=== PATIENT | male | born 1955 | race Caucasian/White ===

== ENCOUNTER 2020-12-15 10:52 | Outpatient (CLI) | payer MEDICARE, MEDICAID ==
[2020-12-15 17:59] LABS: SARS-CoV-2 PCR by NAA Not Detected (NotDetected)
== END 2020-12-15 10:53 | disposition home or self-care (01) ==
LOC: LABBT 10:52
PROVIDERS: ATTEND Internal Medicine Gastroenterology
DX: Z01.812 Encounter for preprocedural laboratory examination (principal); N18.9 Chronic kidney disease, unspecified; D63.1 Anemia in chronic kidney disease; D63.8 Anemia in other chronic diseases classified elsewhere; Z20.822 Contact with and (suspected) exposure to COVID-19; Z86.010 Personal history of colon polyps
CPT/HCPCS: U0003; U0005; 87635

== ENCOUNTER 2020-12-20 07:03 | Day surgery (SDC) | payer MEDICARE, MEDICAID ==
[2020-12-19 08:58] VITALS: BMI 23.8
[2020-12-20] MEDS ORDERED: PROPOFOL 200 MG/20 ML VIAL ONE (08:43)
== END 2020-12-20 09:50 | disposition home or self-care (01) ==
LOC: SDC 07:03
PROVIDERS: ATTEND Internal Medicine Gastroenterology
PROC: 0DJD8ZZ Inspection of Lower Intestinal Tract, Via Natural or Artificial Opening Endoscopic (ICD-10-PCS; principal; 2020-12-20)
DX: Z12.11 Encounter for screening for malignant neoplasm of colon (principal); I12.9 Hypertensive chronic kidney disease with stage 1 through stage 4 chronic kidney disease, or unspecified chronic kidney disease; N18.9 Chronic kidney disease, unspecified; E78.5 Hyperlipidemia, unspecified; M85.80 Other specified disorders of bone density and structure, unspecified site; F72 Severe intellectual disabilities; K21.9 Gastro-esophageal reflux disease without esophagitis; Z86.010 Personal history of colon polyps; Z79.899 Other long term (current) drug therapy; Z53.8 Procedure and treatment not carried out for other reasons; Z88.6 Allergy status to analgesic agent; Z88.8 Allergy status to other drugs, medicaments and biological substances
CPT/HCPCS: J2704

== ENCOUNTER 2021-01-12 10:19 | Outpatient (CLI) | payer MEDICARE, MEDICAID ==
[2021-01-12 20:43] LABS: SARS-CoV-2 PCR by NAA Not Detected (NotDetected)
== END 2021-01-12 10:20 | disposition home or self-care (01) ==
LOC: LABBT 10:19
PROVIDERS: ATTEND Internal Medicine Gastroenterology
DX: Z01.812 Encounter for preprocedural laboratory examination (principal); Z86.010 Personal history of colon polyps; Z53.9 Procedure and treatment not carried out, unspecified reason; Z20.822 Contact with and (suspected) exposure to COVID-19
CPT/HCPCS: U0003; U0005; 87635

== ENCOUNTER 2021-01-17 06:54 | Day surgery (SDC) | payer MEDICARE, MEDICAID ==
[2021-01-17] MEDS ORDERED: Lidocaine 1% PF 5 ML VIAL ONE (07:37)
[2021-01-17] MEDS ORDERED: PROPOFOL 200 MG/20 ML VIAL ONE (07:37)
== END 2021-01-17 10:30 | disposition home or self-care (01) ==
LOC: SDC 06:54
PROVIDERS: ATTEND Internal Medicine Gastroenterology
PROC: 0DBL8ZX Excision of Transverse Colon, Via Natural or Artificial Opening Endoscopic, Diagnostic (ICD-10-PCS; principal; 2021-01-17)
DX: Z12.11 Encounter for screening for malignant neoplasm of colon (principal); D12.3 Benign neoplasm of transverse colon; Q43.8 Other specified congenital malformations of intestine; I12.9 Hypertensive chronic kidney disease with stage 1 through stage 4 chronic kidney disease, or unspecified chronic kidney disease; N18.9 Chronic kidney disease, unspecified; K21.9 Gastro-esophageal reflux disease without esophagitis; Z86.010 Personal history of colon polyps; Z88.6 Allergy status to analgesic agent; Z88.8 Allergy status to other drugs, medicaments and biological substances
CPT/HCPCS: 88305; J2704

== ENCOUNTER 2021-02-08 09:59 | Outpatient (CLI) | payer MEDICARE, MEDICAID ==
[2021-02-08 11:20] LABS: #Eosinphils 0.1 10x3/uL (0.0-0.5); #Monocytes 0.6 10x3/uL (0.0-1.1); #Neutrophils 3.7 10x3/uL (1.5-8.4); %Basophils 0.4 % (0.0-2.0); %Eosinophils 1.1 % (0.0-6.0); %Lymphocytes 18.8 % (18.0-47.0); %Monocytes 11.5 % (0.0-10.0); Hemoglobin 12.5 g/dL (13.5-17.5); Mean Corpuscular HGB CONC 32.4 g/dL (32.0-36.0); Mean Corpuscular Hemoglobin 28.9 pg (27.0-33.0); Mean Corpuscular Volume 89.1 fl (81.2-95.1); Mean Platelet Volume 10.3 fl (7.4-10.4); Platelet Count 251 10x3/uL (150-450); RBC Distribution Width 12.5 % (11.5-14.5); Red Blood Cell (RBC) Count 4.33 10x6/uL (4.32-5.72); White Blood Cell (WBC) Count 5.5 10x3/uL (3.5-10.5)
[2021-02-08 11:24] LABS: ALT (SGPT) 13 U/L (8-55); AST (SGOT) 20 U/L (5-34); Albumin 3.9 g/dL (3.4-4.8); Alkaline Phosphatase 89 U/L (40-110); Anion Gap 11 mmol/L (10-20); BUN (Urea Nitrogen) 20 mg/dL (8.4-25.7); Bilirubin, Total 0.3 mg/dL (0.2-1.2); Calc. Creatinine Clearance 0 mL/min (70-130); Calcium 9.3 mg/dL (7.8-10.44); Carbon Dioxide 31 mmol/L (23-31); Chloride 104 mmol/L (98-107); Globulin 3.1 g/dL (2.4-3.5); Glucose 79 mg/dL (80-115); Potassium 4.1 mmol/L (3.5-5.1); Sodium 142 mmol/L (136-145)
[2021-02-08 14:24] LABS: Hemoglobin A1c 5.1 % (4.0-6.0)
[2021-02-08 20:45] LABS: SARS-CoV-2 NAA Rapid Test Not Detected (NotDetected)
== END 2021-02-08 10:00 | disposition home or self-care (01) ==
LOC: LABBT 09:59
PROVIDERS: ATTEND Surgery
DX: Z01.818 Encounter for other preprocedural examination (principal); K63.5 Polyp of colon; Z20.822 Contact with and (suspected) exposure to COVID-19
CPT/HCPCS: 80053; 83036; 85025; 93005; U0002; U0005; 93010

== ENCOUNTER 2021-02-12 06:12 | Inpatient (IN) | payer MEDICARE, MEDICAID ==
[2021-02-12] MEDS ORDERED: Fentanyl 100 MCG/2 ML VIAL ONE (08:30)
[2021-02-12] MEDS ORDERED: SUGAMMADEX SODIUM 200 MG/2 ML VIAL ONE (08:30)
[2021-02-12] MEDS ORDERED: Bupivacaine 0.25% HCL 30 ML VIAL ONE (08:36)
[2021-02-12] MEDS ORDERED: Lidocaine 1% w/Epinephrine 1:100K 20 ML VIAL ONE (08:36)
[2021-02-12] MEDS ORDERED: ePHEDrine Sulfate 50 MG/10 ML VIAL ONE (08:52)
[2021-02-12] MEDS ORDERED: Ondansetron PF 4 MG/2 ML Vial ONE (08:52)
[2021-02-12] MEDS ORDERED: Dexamethasone 20 MG/5 ML VIAL ONE (08:52)
[2021-02-12] MEDS ORDERED: Lidocaine 1% PF 5 ML VIAL ONE (08:52)
[2021-02-12] MEDS ORDERED: Rocuronium Bromide 10 MG/ML (10ML VIAL) ONE (08:52)
[2021-02-12] MEDS ORDERED: PROPOFOL 200 MG/20 ML VIAL ONE (08:52)
[2021-02-12] MEDS ORDERED: Promethazine HCl 25 MG/ML VIAL IM PRN ×2 (11:25→11:33)
[2021-02-12] MEDS ORDERED: Morphine 10 MG/ML VIAL SLOW IVP PRN (11:25)
[2021-02-12] MEDS ORDERED: Promethazine HCl 25 MG/ML VIAL SLOW IVP PRN (11:33)
[2021-02-12] MEDS ORDERED: Ondansetron HCl/PF 4 MG/2 ML Vial IVP PRN (11:33)
[2021-02-12] MEDS ORDERED: HYDROmorphone 2 MG/ML VIAL SLOW IVP PRN (11:33)
[2021-02-12] MEDS: Sodium Chloride 0.9% 1,000 ML IV SCH ×2 (13:50→21:17)
[2021-02-12] MEDS: cefOXitin Sodium/Dextrose,Iso 2 GM in Premix Bag 1 BAG IVPB SCH ×2 (14:28→21:18)
[2021-02-12] MEDS: Morphine 2 MG/ML VIAL SLOW IVP PRN (18:03)
[2021-02-12] MEDS: Famotidine 20 MG TAB PO SCH (20:44)
[2021-02-12] MEDS: Famotidine/PF 20 mg/2ml Vial SLOW IVP SCH (21:18)
[2021-02-13] MEDS: Morphine 4 MG/ML VIAL SLOW IVP PRN (00:43)
[2021-02-13] MEDS: Sodium Chloride 0.9% 1,000 ML IV SCH ×3 (04:37→19:33)
[2021-02-13] MEDS: Morphine 2 MG/ML VIAL SLOW IVP PRN (04:45)
[2021-02-13 06:40] LABS: Anion Gap 12 mmol/L (10-20); BUN (Urea Nitrogen) 12 mg/dL (8.4-25.7); Calc. Creatinine Clearance 68 mL/min (70-130); Calcium 8.1 mg/dL (7.8-10.44); Carbon Dioxide 27 mmol/L (23-31); Chloride 106 mmol/L (98-107); Glucose 111 mg/dL (80-115); Potassium 3.8 mmol/L (3.5-5.1); Sodium 141 mmol/L (136-145)
[2021-02-13 06:51] LABS: Hemoglobin 10.7 g/dL (14.0-18.0); Mean Corpuscular HGB CONC 33.6 g/dL (32.0-36.0); Mean Corpuscular Hemoglobin 30.4 pg (27.0-31.0); Mean Corpuscular Volume 90.5 fL (78.0-98.0); Mean Platelet Volume 7.6 fL (7.4-10.4); Platelet Count 192 thou/uL (130-400); RBC Distribution Width 12.2 % (11.5-14.5); Red Blood Cell (RBC) Count 3.51 mill/uL (4.70-6.10); White Blood Cell (WBC) Count 8.2 thou/uL (4.8-10.8)
[2021-02-13 07:29] LABS: Band 11 % (5-11); Lymphocytes 14 % (21-51); MDiff Complete? YES; Monocytes 14 % (0-10); Neutrophil 61 % (42-75); Platelet Morphology Comment Appears Adequate; RBC Morphology Normal
[2021-02-13] MEDS: Enoxaparin Sodium 30 MG/0.3 ML SYRINGE SC SCH (07:53)
[2021-02-13] MEDS: Famotidine/PF 20 mg/2ml Vial SLOW IVP SCH ×2 (07:53→19:33)
[2021-02-13] MEDS: Famotidine 20 MG TAB PO SCH ×2 (07:54→19:38)
[2021-02-14] MEDS: Morphine 2 MG/ML VIAL SLOW IVP PRN ×4 (00:33→22:03)
[2021-02-14] MEDS: Ondansetron PF 4 MG/2 ML Vial IVP PRN ×2 (00:33→22:02)
[2021-02-14] MEDS: Sodium Chloride 0.9% 1,000 ML IV SCH ×3 (00:35→19:24)
[2021-02-14] MEDS: Famotidine/PF 20 mg/2ml Vial SLOW IVP SCH ×2 (08:28→19:24)
[2021-02-14] MEDS: Enoxaparin Sodium 30 MG/0.3 ML SYRINGE SC SCH (08:28)
[2021-02-14] MEDS: Famotidine 20 MG TAB PO SCH ×2 (08:33→19:26)
[2021-02-15] MEDS: Famotidine 20 MG TAB PO SCH ×2 (09:24→20:42)
[2021-02-15] MEDS: Famotidine/PF 20 mg/2ml Vial SLOW IVP SCH ×2 (10:13→20:42)
[2021-02-15] MEDS: Sodium Chloride 0.9% 1,000 ML IV SCH (10:13)
[2021-02-15] MEDS: Enoxaparin Sodium 30 MG/0.3 ML SYRINGE SC SCH (12:27)
[2021-02-15 14:02] LABS: Hemoglobin 11.1 g/dL (14.0-18.0); Mean Corpuscular HGB CONC 33.9 g/dL (32.0-36.0); Mean Corpuscular Hemoglobin 30.6 pg (27.0-31.0); Mean Corpuscular Volume 90.4 fL (78.0-98.0); Mean Platelet Volume 7.3 fL (7.4-10.4); Platelet Count 191 thou/uL (130-400); RBC Distribution Width 12.1 % (11.5-14.5); Red Blood Cell (RBC) Count 3.61 mill/uL (4.70-6.10); White Blood Cell (WBC) Count 5.1 thou/uL (4.8-10.8)
[2021-02-15 14:25] LABS: Band 21 % (5-11); Lymphocytes 10 % (21-51); MDiff Complete? YES; Monocytes 7 % (0-10); Neutrophil 62 % (42-75); Platelet Morphology Comment Appears Adequate; RBC Morphology Normal
[2021-02-15] MEDS: Morphine 2 MG/ML VIAL SLOW IVP PRN (21:42)
[2021-02-16] MEDS: Sodium Chloride 0.9% 1,000 ML IV SCH ×3 (00:04→16:07)
[2021-02-16] MEDS: Morphine 4 MG/ML VIAL SLOW IVP PRN (02:52)
[2021-02-16 06:10] LABS: Hemoglobin 10.2 g/dL (14.0-18.0); Mean Corpuscular HGB CONC 31.9 g/dL (32.0-36.0); Mean Corpuscular Hemoglobin 28.8 pg (27.0-31.0); Mean Corpuscular Volume 90.5 fL (78.0-98.0); Mean Platelet Volume 7.5 fL (7.4-10.4); Platelet Count 208 thou/uL (130-400); Red Blood Cell (RBC) Count 3.52 mill/uL (4.70-6.10); White Blood Cell (WBC) Count 3.7 thou/uL (4.8-10.8)
[2021-02-16 06:11] LABS: Band 15 % (5-11); Hypochromia SLIGHT = 6-15 cells (100X) (0-5/hpf); Lymphocytes 10 % (21-51); MDiff Complete? YES; Monocytes 10 % (0-10); Neutrophil 65 % (42-75); Platelet Morphology Comment Appears Adequate
[2021-02-16] MEDS ORDERED: HYDROcodone/Acetaminophen 5/325 mg Tablet PO PRN ×2 (08:01)
[2021-02-16] MEDS: Famotidine/PF 20 mg/2ml Vial SLOW IVP SCH ×2 (08:01→20:23)
[2021-02-16] MEDS: Famotidine 20 MG TAB PO SCH ×2 (08:04→20:24)
[2021-02-16] MEDS: Enoxaparin Sodium 30 MG/0.3 ML SYRINGE SC SCH (10:11)
[2021-02-16] MEDS: Ondansetron PF 4 MG/2 ML Vial IVP PRN (20:23)
[2021-02-17] MEDS: Morphine 4 MG/ML VIAL SLOW IVP PRN ×2 (00:13→04:50)
[2021-02-17] MEDS: Sodium Chloride 0.9% 1,000 ML IV SCH ×3 (01:10→17:59)
[2021-02-17] MEDS: Ondansetron PF 4 MG/2 ML Vial IVP PRN (04:50)
[2021-02-17] MEDS: Famotidine/PF 20 mg/2ml Vial SLOW IVP SCH ×2 (09:21→20:32)
[2021-02-17] MEDS: Famotidine 20 MG TAB PO SCH (09:21)
[2021-02-17] MEDS: Enoxaparin Sodium 30 MG/0.3 ML SYRINGE SC SCH (09:25)
[2021-02-17] MEDS ORDERED: Iopamidol 370 76% 50 ML VIAL FS ONE (10:19)
[2021-02-17] MEDS ORDERED: Iopamidol-370 76% 500 ML 1 ML ONE (10:19)
[2021-02-18] MEDS: Sodium Chloride 0.9% 1,000 ML IV SCH ×3 (00:01→20:43)
[2021-02-18] MEDS: Famotidine 20 MG TAB PO SCH ×3 (00:45→20:44)
[2021-02-18 05:05] LABS: Band 35 % (5-11); Eosinophils 1 % (0-10); Hemoglobin 10.2 g/dL (14.0-18.0); Lymphocytes 19 % (21-51); MDiff Complete? YES; Mean Corpuscular HGB CONC 33.9 g/dL (32.0-36.0); Mean Corpuscular Hemoglobin 30.4 pg (27.0-31.0); Mean Corpuscular Volume 89.8 fL (78.0-98.0); Mean Platelet Volume 7.6 fL (7.4-10.4); Monocytes 13 % (0-10); Neutrophil 32 % (42-75); Platelet Count 213 thou/uL (130-400); Platelet Morphology Comment Appears Adequate; RBC Distribution Width 12.3 % (11.5-14.5); Red Blood Cell (RBC) Count 3.36 mill/uL (4.70-6.10); White Blood Cell (WBC) Count 5.4 thou/uL (4.8-10.8)
[2021-02-18 05:31] LABS: ALT (SGPT) 13 U/L (8-55); AST (SGOT) 24 U/L (5-34); Albumin 2.8 g/dL (3.4-4.8); Alkaline Phosphatase 59 U/L (40-110); Anion Gap 12 mmol/L (10-20); BUN (Urea Nitrogen) 13 mg/dL (8.4-25.7); Bilirubin, Total 0.5 mg/dL (0.2-1.2); Calc. Creatinine Clearance 83 mL/min (70-130); Calcium 8.4 mg/dL (7.8-10.44); Carbon Dioxide 28 mmol/L (23-31); Chloride 104 mmol/L (98-107); Globulin 2.8 g/dL (2.4-3.5); Glucose 90 mg/dL (80-115); Magnesium 1.8 mg/dL (1.6-2.6); Phosphorus 2.2 mg/dL (2.3-4.7); Protein, Total 5.6 g/dL (5.8-8.1); Sodium 141 mmol/L (136-145)
[2021-02-18 05:33] LABS: Potassium 2.9 mmol/L (3.5-5.1)
[2021-02-18] MEDS: Morphine 2 MG/ML VIAL SLOW IVP PRN ×3 (05:50→22:28)
[2021-02-18] MEDS ORDERED: Potassium Chloride 40 MEQ in Sodium Chloride 0.9% 250 ML 250 ML IVPB SCH (07:00)
[2021-02-18] MEDS: Enoxaparin Sodium 30 MG/0.3 ML SYRINGE SC SCH (09:54)
[2021-02-18] MEDS: Famotidine/PF 20 mg/2ml Vial SLOW IVP SCH ×2 (09:54→20:43)
[2021-02-18 16:15] LABS: Anion Gap 18 mmol/L (10-20); BUN (Urea Nitrogen) 13 mg/dL (8.4-25.7); Calc. Creatinine Clearance 83 mL/min (70-130); Calcium 8.7 mg/dL (7.8-10.44); Carbon Dioxide 27 mmol/L (23-31); Chloride 104 mmol/L (98-107); Glucose 96 mg/dL (80-115); Potassium 3.2 mmol/L (3.5-5.1); Sodium 146 mmol/L (136-145)
[2021-02-19] MEDS: Sodium Chloride 0.9% 1,000 ML IV SCH (03:27)
[2021-02-19] MEDS: hydrALAZINE 20 MG/ML VIAL SLOW IVP PRN ×2 (03:33→10:35)
[2021-02-19] MEDS: Morphine 2 MG/ML VIAL SLOW IVP PRN ×2 (03:34→22:53)
[2021-02-19 05:03] LABS: Anion Gap 17 mmol/L (10-20); BUN (Urea Nitrogen) 15 mg/dL (8.4-25.7); Calc. Creatinine Clearance 93 mL/min (70-130); Calcium 8.6 mg/dL (7.8-10.44); Carbon Dioxide 27 mmol/L (23-31); Chloride 106 mmol/L (98-107); Glucose 106 mg/dL (80-115); Potassium 3.1 mmol/L (3.5-5.1); Sodium 147 mmol/L (136-145)
[2021-02-19] MEDS: D5 1/2 NS w/20 mEq KCL 1,000 ML IV SCH ×3 (06:19→20:09)
[2021-02-19] MEDS: Potassium Chloride 20 MEQ in Premix Bag 1 BAG IVPB SCH ×2 (06:20→10:23)
[2021-02-19 07:09] LABS: #Lymphocytes 0.6 thou/uL (1.20-3.40); #Monocytes 1.2 thou/uL (0.11-0.59); #Neutrophils 6.7 thou/uL (1.40-6.50); %Basophils 0.1 % (0.0-1.0); %Eosinophils 0.3 % (0.0-10.0); %Lymphocytes 7.2 % (21.0-51.0); %Monocytes 14.2 % (0.0-10.0); %Neutrophils 78.1 % (42.0-75.0); Hemoglobin 10.8 g/dL (14.0-18.0); Mean Corpuscular HGB CONC 33.2 g/dL (32.0-36.0); Mean Corpuscular Hemoglobin 30.2 pg (27.0-31.0); Mean Corpuscular Volume 91.1 fL (78.0-98.0); Mean Platelet Volume 8.6 fL (7.4-10.4); Platelet Count 257 thou/uL (130-400); RBC Distribution Width 12.4 % (11.5-14.5); Red Blood Cell (RBC) Count 3.57 mill/uL (4.70-6.10); White Blood Cell (WBC) Count 8.6 thou/uL (4.8-10.8)
[2021-02-19] MEDS ORDERED: Midazolam HCl 2 mg/2 ml Vial ONE (08:40)
[2021-02-19] MEDS ORDERED: Sodium Bicarbonate 2.5 MEQ/5 ML VIAL ONE (08:40)
[2021-02-19] MEDS ORDERED: Fentanyl 100 MCG/2 ML VIAL ONE (08:40)
[2021-02-19] MEDS: Famotidine 20 MG TAB PO SCH ×2 (10:11→20:09)
[2021-02-19] MEDS: Famotidine/PF 20 mg/2ml Vial SLOW IVP SCH ×2 (10:23→20:09)
[2021-02-19] MEDS: Enoxaparin Sodium 30 MG/0.3 ML SYRINGE SC SCH (10:32)
[2021-02-19 11:36] LABS: BF Color Red; Body Fluid Source Abscess Fluid; Clarity Hazy (Clear); Tube # 3
[2021-02-19 11:40] LABS: WBC/Nucleated-Auto (BF) 65 uL
[2021-02-19 11:41] LABS: RBC Count-Automated (BF) 540 /cu.mm
[2021-02-19 11:43] LABS: BF Segmented Neutrophils 1 %; Cell Count Non Hematic 93 %; Lymphocytes 3 %
[2021-02-19] MEDS ORDERED: Bisacodyl 10 MG SUPP PR PRN (12:54)
[2021-02-20] MEDS: D5 1/2 NS w/20 mEq KCL 1,000 ML IV SCH ×3 (04:18→21:33)
[2021-02-20] MEDS: Famotidine/PF 20 mg/2ml Vial SLOW IVP SCH ×2 (08:35→21:33)
[2021-02-20] MEDS: Famotidine 20 MG TAB PO SCH ×2 (08:43→21:34)
[2021-02-20] MEDS: Enoxaparin Sodium 30 MG/0.3 ML SYRINGE SC SCH (10:03)
[2021-02-20] MEDS: hydrALAZINE 20 MG/ML VIAL SLOW IVP PRN (12:32)
[2021-02-20] MEDS: Morphine 2 MG/ML VIAL SLOW IVP PRN (23:09)
[2021-02-21] MEDS ORDERED: Benzocaine (Dental) 7 GM TUBE TOP PRN (04:32)
[2021-02-21] MEDS: D5 1/2 NS w/20 mEq KCL 1,000 ML IV SCH ×2 (05:17→15:59)
[2021-02-21] MEDS: Morphine 2 MG/ML VIAL SLOW IVP PRN (06:10)
[2021-02-21] MEDS: Famotidine 20 MG TAB PO SCH ×2 (09:57→22:31)
[2021-02-21] MEDS: Famotidine/PF 20 mg/2ml Vial SLOW IVP SCH ×2 (09:58→22:35)
[2021-02-21] MEDS: Enoxaparin Sodium 30 MG/0.3 ML SYRINGE SC SCH (09:58)
[2021-02-21 14:43] LABS: Anion Gap 14 mmol/L (10-20); BUN (Urea Nitrogen) 10 mg/dL (8.4-25.7); Calc. Creatinine Clearance 71 mL/min (70-130); Calcium 8.7 mg/dL (7.8-10.44); Carbon Dioxide 31 mmol/L (23-31); Chloride 112 mmol/L (98-107); Glucose 112 mg/dL (80-115); Potassium 3.5 mmol/L (3.5-5.1); Sodium 153 mmol/L (136-145)
[2021-02-22] MEDS: Famotidine 20 MG TAB PO SCH ×2 (09:54→22:11)
[2021-02-22] MEDS: Famotidine/PF 20 mg/2ml Vial SLOW IVP SCH ×2 (09:54→22:07)
[2021-02-22 10:26] VITALS: BMI 22.6
[2021-02-22] MEDS: Enoxaparin Sodium 30 MG/0.3 ML SYRINGE SC SCH (15:03)
[2021-02-23] MEDS: Famotidine 20 MG TAB PO SCH ×2 (08:59→09:03)
[2021-02-23] MEDS: Famotidine/PF 20 mg/2ml Vial SLOW IVP SCH ×2 (08:59→09:03)
[2021-02-23 09:23] LABS: #Eosinphils 0.2 thou/uL (0.0-0.7); #Lymphocytes 0.9 thou/uL (1.20-3.40); #Monocytes 0.9 thou/uL (0.11-0.59); #Neutrophils 7.9 thou/uL (1.40-6.50); %Basophils 0.3 % (0.0-1.0); %Eosinophils 1.9 % (0.0-10.0); %Lymphocytes 9.5 % (21.0-51.0); %Monocytes 9.4 % (0.0-10.0); Mean Corpuscular HGB CONC 32.5 g/dL (32.0-36.0); Mean Corpuscular Hemoglobin 29.7 pg (27.0-31.0); Mean Corpuscular Volume 91.3 fL (78.0-98.0); Mean Platelet Volume 7.8 fL (7.4-10.4); Platelet Count 337 thou/uL (130-400); RBC Distribution Width 12.9 % (11.5-14.5); Red Blood Cell (RBC) Count 4.05 mill/uL (4.70-6.10); White Blood Cell (WBC) Count 9.9 thou/uL (4.8-10.8)
[2021-02-23] MEDS: Enoxaparin Sodium 30 MG/0.3 ML SYRINGE SC SCH (10:46)
[2021-02-23 11:12] VITALS: BP 153/76; TEMP 97.8
== END 2021-02-23 12:00 | disposition short-term general hospital (02) | DRG 330 ==
LOC: SDC 06:12 → SURG A 11:25 → 2NO 02-17 23:30
PROVIDERS: ADMIT Surgery; ATTEND Surgery
PROC: 0DBL0ZZ Excision of Transverse Colon, Open Approach (ICD-10-PCS; principal; 2021-02-12)
PROC: 0D9670Z Drainage of Stomach with Drainage Device, Via Natural or Artificial Opening (ICD-10-PCS; 2021-02-17)
PROC: 0W9F3ZZ Drainage of Abdominal Wall, Percutaneous Approach (ICD-10-PCS; 2021-02-19)
PROC: BW20ZZZ Computerized Tomography (CT Scan) of Abdomen (ICD-10-PCS; 2021-02-19)
DX: D37.4 Neoplasm of uncertain behavior of colon (principal); F72 Severe intellectual disabilities; K56.7 Ileus, unspecified; L02.211 Cutaneous abscess of abdominal wall; D12.3 Benign neoplasm of transverse colon; F31.9 Bipolar disorder, unspecified; F20.9 Schizophrenia, unspecified; E88.81 Metabolic syndrome and other insulin resistance; I10 Essential (primary) hypertension; E78.5 Hyperlipidemia, unspecified; F63.3 Trichotillomania; M54.9 Dorsalgia, unspecified; R11.2 Nausea with vomiting, unspecified; R00.1 Bradycardia, unspecified; Z98.890 Other specified postprocedural states; Z79.899 Other long term (current) drug therapy; Z88.6 Allergy status to analgesic agent; Z88.8 Allergy status to other drugs, medicaments and biological substances
CPT/HCPCS: 36415; 36416; 49020; 74018; 74019; 74177; 77002; 80048; 80053; 83735; 84100; 84443; 85025; 85060; 87070; 87205; 88309; 89051; 93005; 93010; J0360; J0690; J0694; J1100; J1650; J2250; J2270; J2405; J2704; J3010; J3480; J7050; Q9967; S0020; S0028

== ENCOUNTER 2022-01-09 08:31 | Day surgery (SDC) | payer MEDICARE, MEDICAID ==
[2022-01-07 16:13] VITALS: BMI 22.6
[2022-01-09] MEDS ORDERED: PROPOFOL 200 MG/20 ML VIAL ONE (10:11)
[2022-01-09] MEDS ORDERED: Lidocaine 1% PF 5 ML VIAL ONE (10:11)
== END 2022-01-09 11:15 | disposition short-term general hospital (02) ==
LOC: SDC 08:31
PROVIDERS: ATTEND Internal Medicine Gastroenterology
PROC: 0DJ08ZZ Inspection of Upper Intestinal Tract, Via Natural or Artificial Opening Endoscopic (ICD-10-PCS; principal; 2022-01-09)
DX: K21.9 Gastro-esophageal reflux disease without esophagitis (principal); R11.2 Nausea with vomiting, unspecified; K59.00 Constipation, unspecified; R13.10 Dysphagia, unspecified; E78.5 Hyperlipidemia, unspecified; F72 Severe intellectual disabilities; I12.9 Hypertensive chronic kidney disease with stage 1 through stage 4 chronic kidney disease, or unspecified chronic kidney disease; N18.30 Chronic kidney disease, stage 3 unspecified; D63.1 Anemia in chronic kidney disease; M85.80 Other specified disorders of bone density and structure, unspecified site; Z79.899 Other long term (current) drug therapy; Z88.6 Allergy status to analgesic agent; Z88.8 Allergy status to other drugs, medicaments and biological substances; Z90.49 Acquired absence of other specified parts of digestive tract
CPT/HCPCS: J2704